=== PATIENT | male | born 1930 | race Caucasian/White ===

== ENCOUNTER 2018-07-30 18:14 | Emergency (ER) | payer OTHER, BC ==
--- NOTE | 2018-07-30 18:42 | EDPHY ---
H & P Time Seen by Provider: 07/30/18 18:20 HPI/ROS: This patient sustained a finger injury to the right 4th finger tip when it was slammed inadvertently the car door of the family car shortly prior to arrival. He reports moderate pain and moderate bleeding. The bleeding slowed with direct pressure prior to arrival. He denies any other injuries. ROS: Neuro: No numbness or tingling the affected finger. Musculoskeletal: He does report some associated bony pain to the finger. No other injuries. 5 point review of symptoms is performed and otherwise negative with exception of pertinent positives and negatives listed in HPI and ROS Smoking Status: Former smoker Physical Exam: Physical Exam Vital signs are normal. General: No acute distress HEENT: Atraumatic. Eyes: Pupils equal and react to light. Extraocular motions are intact. Lungs: No respiratory distress. Cardiac: Brisk capillary refill is intact throughout. Pulses are 2+ and symmetric in the affected extremity. Extremities: Atraumatic normal except for right 4th finger-that exam is notable for a 2.3 cm full-thickness laceration that wraps around the distal phalanx finger tip to the proximal distal phalanx just short of the D IP joint. Subcutaneous tissues evident but no deeper structures are injured. No foreign bodies are noted on direct examination. There is mild active bleeding. Skin: No rash or pallor. Neuro: Alert and oriented x3 with no sensorimotor deficits in the affected finger. Initial differential diagnosis: Laceration of finger with contusion, open fracture, finger sprain Constitutional: Initial Vital Signs Temperature (C) 36.5 C 07/30/18 18:21 Heart Rate 82 07/30/18 18:21 Respiratory Rate 16 07/30/18 18:21 Blood Pressure 160/83 H 07/30/18 18:21 O2 Sat (%) 90 L 07/30/18 18:21 O2 Delivery Mode Room Air Allergies/Adverse Reactions: No Known Allergies Allergy (Unverified 07/30/18 18:27) Home Medications: Medication Instructions Recorded Amoxicillin/Clavulanate Pot 875 mg PO BID #10 tab 07/30/18 [Augmentin 875 MG TAB (*)] MDM/Departure - MDM Diagnostics: Finger x-rays: 4th finger distal phalanx Tuft fracture with minimal displacement by my interpretation Imaging Results: Imaging Impressions Finger X-Ray 07/30/18 18:27 Impression: Comminuted minimally displaced fracture of the tuft of the distal phalanx. Procedures: Digital block: After verbal consent, using a 50 50 mix of 0.5% Marcaine 2% plain lidocaine, 27 gauge needle, chlorhexidine scrub under sterile conditions- 3 injections were administered to the base of the affected finger, 8 mL with good effect. Patient tolerated this well. There were no complications. The wound is described physical exam-2.3 cm long. The wound was copiously irrigated with saline. The wound was explored for foreign bodies and none were found. The wound was prepped and draped in the normal sterile fashion. The wound was anesthetized using Digital block: After verbal consent, using a 50 50 mix of 0.5% Marcaine 2% plain lidocaine, 27 gauge needle, chlorhexidine scrub under sterile conditions-3 injections were administered to the base of the affected finger, 8 mL with good effect. Patient tolerated this well. There were no complications. The edges were reapproximated using 4 0 Prolene -8 interrupted sutures with good hemostasis and cosmesis. The patient tolerated the procedure well. There were no complications. He is placed in tube gauze dressing after and also we provided a stack splint instructed the patient and his son and placement so that in 2 days he can remove the tube gauze and put a Band-Aid on & the stax splint. Medications Given: Discontinued Medications Amoxicillin/Clavulanate Potassium (Augmentin 875mg) 875 mg PO EDNOW ONE PRN Reason: Protocol Stop: 07/30/18 19:08 Last Admin: 07/30/18 19:32 Dose: 875 mg ED Course/Re-evaluation: Patient is placed in a tube gauze dressing by our tech after a suture his wound. He is given a dose of Augmentin 875 mg p.o. For open fracture of the finger. I counseled him and his son regarding toe fracture in some detail with plan for him to remove the tube gauze in 2 days, clean the wound, placed a Band-Aid and stack splint that we provided. Return for suture removal in 10 days. He will take Tylenol for pain. He understands need to return emergency department should develop redness, discharge or other concerns for infection - Depart Disposition: Home, Routine, Self-Care Clinical Impression: Open fracture of tuft of distal phalanx of finger Condition: Good Instructions: Finger Fracture (ED), Finger Laceration (ED) Additional Instructions: Diagnosis: Open tuft fracture Plan: Keep the wound clean and dry for the next 2 days, then clean daily with warm soapy water After 2 days removed the bulky dressing, clean gently with warm soapy water, apply regular Band-Aid and wear the stax- splint. Be sure to remove the bandage for part of the day or evening thereafter to get air to the wound to help heal. Augmentin antibiotic as prescribed Tylenol for pain as needed. Return for suture removal in 10-12 days. Return sooner if he develops redness, discharge or other concerns for infection Prescriptions: Amoxicillin/Clavulanate Pot [Augmentin 875 MG TAB (*)] 875 mg PO BID #10 tab Referrals: FELICIA CONNOR [Other] - As per Instructions
[2018-07-30] MEDS ORDERED: AMOXICILLIN/CLAVULANATE POT 875/125 MG TAB PO ONE (19:07)
[2018-07-30 20:42] VITALS: BP 137/62
== END 2018-07-30 20:17 | disposition home or self-care (01) ==
LOC: CED 18:14
PROC: 0HQFXZZ Repair Right Hand Skin, External Approach (ICD-10-PCS; principal; 2018-07-30)
DX: S62.634B Displaced fracture of distal phalanx of right ring finger, initial encounter for open fracture (principal); Z87.891 Personal history of nicotine dependence; W23.0XXA Caught, crushed, jammed, or pinched between moving objects, initial encounter; Y92.9 Unspecified place or not applicable; Y93.9 Activity, unspecified; Y99.9 Unspecified external cause status
CPT/HCPCS: 12001; 73140; 99283; L3925